=== PATIENT | male | born 1940 | race African-American/Black ===

== ENCOUNTER 2021-09-25 08:17 | Inpatient (IN) ==
[2021-09-25 10:45] LABS: Basophils % 0.2 % (0.0-0.8); Eosinophils # 0.1 10*3/uL (0.0-0.87); Eosinophils % 0.7 % (0.00-10.9); Hematocrit 45.3 VOL% (42.0-52.0); Hemoglobin 14.9 GM/DL (14.0-18.0); Immature Granulocytes % 0.2 %; Immature Granulocytes Absolute 0.02 #; Lymphocytes # 2.7 10*3/uL (1.4-4.0); Lymphocytes % 30.2 % (21.2-54.2); Mean Corpuscular HGB Conc 32.9 GM/DL (32-36); Mean Corpuscular Volume 91.3 FL (87-102); Mean Platelet Volume 11.4 FL (9.6-12.0); Monocytes % 13.8 % (1.7-12.7); Neutrophils % 54.9 % (38.7-73.9); Platelet Count 191 T/CUMM (130-400); Red Blood Count 4.96 MC/CUMM (3.8-5.5); Red Cell Distribution Width 13.3 % (9.3-17.3)
[2021-09-25 11:09] LABS: Albumin 3.2 G/DL (3.4-5.0); Bilirubin,Total 0.8 MG/DL (0.20-1.00); Calcium 11.1 MG/DL (8.5-10.1); Osmolality,Calculated 284.1 MOS/KG (273-304); Potassium 3.6 MMOL/L (3.5-5.1); Total Protein 7.5 G/DL (6.4-8.2)
[2021-09-25] MEDS ORDERED: ONDANSETRON 4 MG/2 ML VIAL IV PRN (13:46)
[2021-09-25] MEDS ORDERED: LACTATED RINGERS 1,000 ML IV SCH (13:46)
[2021-09-25] MEDS ORDERED: HYDROmorphone 2 MG/1 ML VIAL IV PRN (13:46)
[2021-09-25] MEDS ORDERED: CLOTRIMAZOLE 1% CREAM 15 GM TUBE TOP PRN (13:46)
[2021-09-25] MEDS ORDERED: PROMETHAZINE 25 MG/1 ML VIAL IM PRN (13:46)
[2021-09-25] MEDS ORDERED: ACETAMINOPHEN 325 MG TABLET PO PRN (13:46)
[2021-09-25] MEDS: METOPROLOL TARTRATE 25 MG TABLET PO SCH ×2 (14:47→21:09)
[2021-09-25] MEDS: ALBUTEROL/IPRATROPIUM 3 ML NEB RESP TX SCH ×2 (15:25→20:00)
[2021-09-25] MEDS ORDERED: LACTATED RINGERS 1,000 ML IV ONE (18:15)
[2021-09-25] MEDS: LACTATED RINGERS 1,000 ML IV SCH (19:15)
[2021-09-25] MEDS: risperiDONE 1 MG TABLET PO SCH (21:09)
[2021-09-25] MEDS: ROSUVASTATIN 20 MG TABLET PO SCH (21:09)
[2021-09-25] MEDS: MICONAZOLE 2% CREAM 57 GM TUBE TOP SCH (21:10)
[2021-09-26] MEDS: ALBUTEROL/IPRATROPIUM 3 ML NEB RESP TX SCH ×4 (00:46→19:07)
[2021-09-26] MEDS: LACTATED RINGERS 1,000 ML IV SCH (02:21)
[2021-09-26 06:03] LABS: Basophils % 0.4 % (0.0-0.8); Eosinophils # 0.2 10*3/uL (0.0-0.87); Eosinophils % 2.3 % (0.00-10.9); Hematocrit 42.6 VOL% (42.0-52.0); Hemoglobin 14.1 GM/DL (14.0-18.0); Immature Granulocytes % 0.3 %; Immature Granulocytes Absolute 0.02 #; Lymphocytes # 2.6 10*3/uL (1.4-4.0); Lymphocytes % 38.2 % (21.2-54.2); Mean Corpuscular HGB Conc 33.1 GM/DL (32-36); Mean Corpuscular Volume 92.2 FL (87-102); Mean Platelet Volume 11.7 FL (9.6-12.0); Monocytes % 16.7 % (1.7-12.7); Neutrophils % 42.1 % (38.7-73.9); Platelet Count 166 T/CUMM (130-400); Red Blood Count 4.62 MC/CUMM (3.8-5.5); Red Cell Distribution Width 13.3 % (9.3-17.3); White Blood Count 6.9 T/CUMM (4-12)
[2021-09-26 06:23] LABS: Calcium 10.9 MG/DL (8.5-10.1); Osmolality,Calculated 286.8 MOS/KG (273-304); Potassium 3.3 MMOL/L (3.5-5.1)
[2021-09-26 06:24] LABS: Anisocytosis Slight; Band Neutrophils 2 % (0-10); Eosinophils 2 % (0-10); Lymphocytes 34 % (20-55); Macrocytosis Slight; Nucleated Red Blood Cells 1 (0-5); Platelet Estimate Normal; Segmented Neutrophils 45 % (50-85); Total Cells Counted 100
[2021-09-26] MEDS ORDERED: PANTOPRAZOLE 40 MG TABLET PO SCH (09:00)
[2021-09-26] MEDS: CYANOCOBALAMIN 500 MCG TABLET PO SCH (09:04)
[2021-09-26] MEDS: PANTOPRAZOLE 40 MG TABLET PO SCH (09:04)
[2021-09-26] MEDS: METOPROLOL TARTRATE 25 MG TABLET PO SCH ×2 (09:04→22:18)
[2021-09-26] MEDS: MONTELUKAST 10 MG TABLET PO SCH (09:04)
[2021-09-26] MEDS: ENOXAPARIN 40 MG/0.4 ML SYRINGE SUBCUT SCH (09:05)
[2021-09-26] MEDS: DEXT 5% NACL 0.45% KCL 20 MEQ 20 MEQ/1,000 ML BAG IV SCH ×2 (09:52→16:45)
[2021-09-26] MEDS: MICONAZOLE 2% CREAM 57 GM TUBE TOP SCH ×2 (10:44→21:56)
[2021-09-26] MEDS: risperiDONE 1 MG TABLET PO SCH (21:53)
[2021-09-26] MEDS: ROSUVASTATIN 20 MG TABLET PO SCH (21:53)
[2021-09-27] MEDS: DEXT 5% NACL 0.45% KCL 20 MEQ 20 MEQ/1,000 ML BAG IV SCH ×7 (00:09→23:02)
[2021-09-27] MEDS: ALBUTEROL/IPRATROPIUM 3 ML NEB RESP TX SCH ×4 (00:44→19:13)
[2021-09-27 05:35] LABS: Basophils % 0.4 % (0.0-0.8); Eosinophils # 0.3 10*3/uL (0.0-0.87); Eosinophils % 3.4 % (0.00-10.9); Hematocrit 41.2 VOL% (42.0-52.0); Hemoglobin 13.4 GM/DL (14.0-18.0); Immature Granulocytes % 0.4 %; Immature Granulocytes Absolute 0.03 #; Lymphocytes # 2.4 10*3/uL (1.4-4.0); Lymphocytes % 33.5 % (21.2-54.2); Mean Corpuscular HGB Conc 32.5 GM/DL (32-36); Mean Corpuscular Volume 92.8 FL (87-102); Mean Platelet Volume 11.6 FL (9.6-12.0); Monocytes % 13.5 % (1.7-12.7); Neutrophils % 48.8 % (38.7-73.9); Platelet Count 149 T/CUMM (130-400); Red Blood Count 4.44 MC/CUMM (3.8-5.5); White Blood Count 7.3 T/CUMM (4-12)
[2021-09-27 05:42] LABS: Calcium 10.1 MG/DL (8.5-10.1); Osmolality,Calculated 281.3 MOS/KG (273-304); Potassium 3.3 MMOL/L (3.5-5.1)
[2021-09-27] MEDS: ENOXAPARIN 40 MG/0.4 ML SYRINGE SUBCUT SCH (09:01)
[2021-09-27] MEDS: MICONAZOLE 2% CREAM 57 GM TUBE TOP SCH ×2 (11:50→21:42)
[2021-09-27] MEDS: METOPROLOL TARTRATE 25 MG TABLET PO SCH ×2 (12:18→21:39)
[2021-09-27] MEDS: PANTOPRAZOLE 40 MG TABLET PO SCH (12:19)
[2021-09-27] MEDS: MONTELUKAST 10 MG TABLET PO SCH (12:19)
[2021-09-27] MEDS: CYANOCOBALAMIN 500 MCG TABLET PO SCH (12:19)
[2021-09-27] MEDS: risperiDONE 1 MG TABLET PO SCH (21:39)
[2021-09-27] MEDS: ROSUVASTATIN 20 MG TABLET PO SCH (21:39)
[2021-09-28] MEDS: ALBUTEROL/IPRATROPIUM 3 ML NEB RESP TX SCH ×4 (01:21→20:05)
[2021-09-28 05:19] LABS: Basophils % 0.4 % (0.0-0.8); Eosinophils # 0.2 10*3/uL (0.0-0.87); Eosinophils % 2.8 % (0.00-10.9); Hematocrit 43.7 VOL% (42.0-52.0); Hemoglobin 14.4 GM/DL (14.0-18.0); Immature Granulocytes % 0.3 %; Immature Granulocytes Absolute 0.02 #; Lymphocytes # 2.4 10*3/uL (1.4-4.0); Lymphocytes % 30.2 % (21.2-54.2); Mean Corpuscular Volume 92.4 FL (87-102); Monocytes % 11.4 % (1.7-12.7); Neutrophils % 54.9 % (38.7-73.9); Platelet Count 170 T/CUMM (130-400); Red Blood Count 4.73 MC/CUMM (3.8-5.5); Red Cell Distribution Width 12.8 % (9.3-17.3); White Blood Count 7.9 T/CUMM (4-12)
[2021-09-28] MEDS: DEXT 5% NACL 0.45% KCL 20 MEQ 20 MEQ/1,000 ML BAG IV SCH ×3 (05:40→21:23)
[2021-09-28 06:12] LABS: Calcium 10.6 MG/DL (8.5-10.1); Osmolality,Calculated 278.4 MOS/KG (273-304); Potassium 3.6 MMOL/L (3.5-5.1)
[2021-09-28] MEDS: METOPROLOL TARTRATE 25 MG TABLET PO SCH ×2 (08:09→21:20)
[2021-09-28] MEDS: PANTOPRAZOLE 40 MG TABLET PO SCH (08:09)
[2021-09-28] MEDS ORDERED: fentaNYL 100 MCG/2 ML VIAL ONE ×2 (08:38→11:15)
[2021-09-28] MEDS ORDERED: LIDOCAINE 2% 5 ML VIAL ONE (08:40)
[2021-09-28] MEDS ORDERED: propofoL 200 MG/20 ML VIAL IV ONE (08:40)
[2021-09-28] MEDS ORDERED: SEVOFLURANE 1 UNIT/15 MINUTE INH ONE ×7 (08:40→11:35)
[2021-09-28] MEDS ORDERED: ROCURONIUM 50 MG/5 ML VIAL IV ONE ×2 (08:40→10:22)
[2021-09-28] MEDS ORDERED: ETOMIDATE 40 MG/20 ML VIAL IV ONE (08:40)
[2021-09-28] MEDS ORDERED: SUCCINYLCHOLINE 200 MG/10 ML VIAL ONE (08:40)
[2021-09-28] MEDS: MONTELUKAST 10 MG TABLET PO SCH (09:08)
[2021-09-28] MEDS: CYANOCOBALAMIN 500 MCG TABLET PO SCH (09:08)
[2021-09-28] MEDS: ENOXAPARIN 40 MG/0.4 ML SYRINGE SUBCUT SCH (09:08)
[2021-09-28] MEDS ORDERED: PHENYLEPHRINE 10 MG/1 ML VIAL IV ONE ×2 (09:19→10:31)
[2021-09-28] MEDS ORDERED: ALBUMIN 5% 12.5 GM/250 ML VIAL IV ONE (09:28)
[2021-09-28] MEDS ORDERED: METOPROLOL TARTRATE 5 MG/5 ML VIAL IV ONE (09:53)
[2021-09-28] MEDS ORDERED: SODIUM CHLORIDE 0.9% 100 ML IV ONE ×2 (09:53→10:31)
[2021-09-28] MEDS ORDERED: SUGAMMADEX 200 MG/2 ML VIAL IV ONE (10:55)
[2021-09-28] MEDS ORDERED: LACTATED RINGERS 1,000 ML IV ONE ×2 (11:18→17:11)
[2021-09-28 11:38] LABS: Amorphous Crystals,Urine Few /HPF (Few); Bacteria,Urine Occasional /HPF (Few); Bilirubin,Urine Negative (Negative); Blood, Urine Moderate mg/dL (Negative); Glucose,Urine (UA) 50 mg/dL (Negative); Hyaline Casts,Urine 1 /LPF (0-3); Ketones,Urine Negative (Negative); Mucus,Urine Many /LPF (Occasional); Nitrite,Urine Negative (Negative); Protein,Urine 100 MG/DL; RBC,Urine 13 /HPF (0-4); Squamous Epithelial Cell,Urine Occasional /HPF (0-10); Urine Appearance Slightly Hazy (Clear); Urine Color Amber (Yellow); Urine Urobilinogen < 2.0 EU/DL (<2.0)
[2021-09-28 13:12] LABS: Basophils % 0.4 % (0.0-0.8); Eosinophils % 0.8 % (0.00-10.9); Hemoglobin 14.3 GM/DL (14.0-18.0); Immature Granulocytes % 0.2 %; Immature Granulocytes Absolute 0.01 #; Lymphocytes # 1.7 10*3/uL (1.4-4.0); Lymphocytes % 33.9 % (21.2-54.2); Mean Corpuscular HGB Conc 32.5 GM/DL (32-36); Mean Corpuscular Volume 93.6 FL (87-102); Mean Platelet Volume 11.2 FL (9.6-12.0); Monocytes % 11.1 % (1.7-12.7); Neutrophils % 53.6 % (38.7-73.9); Platelet Count 177 T/CUMM (130-400); Red Cell Distribution Width 12.9 % (9.3-17.3)
[2021-09-28 13:28] LABS: Calcium 9.9 MG/DL (8.5-10.1); Osmolality,Calculated 276.7 MOS/KG (273-304)
[2021-09-28 14:26] LABS: Eosinophils 1 % (0-10); Lymphocytes 38 % (20-55); Segmented Neutrophils 52 % (50-85); Total Cells Counted 100
[2021-09-28 14:27] LABS: Platelet Estimate Adequate
[2021-09-28] MEDS ORDERED: HYDROmorphone 2 MG/1 ML VIAL IV ONE (17:18)
[2021-09-28] MEDS: MICONAZOLE 2% CREAM 57 GM TUBE TOP SCH ×2 (18:38→21:22)
[2021-09-28] MEDS: LACTATED RINGERS 1,000 ML IV SCH (18:39)
[2021-09-28] MEDS: risperiDONE 1 MG TABLET PO SCH (21:19)
[2021-09-28] MEDS: ROSUVASTATIN 20 MG TABLET PO SCH (21:20)
[2021-09-29] MEDS: ALBUTEROL/IPRATROPIUM 3 ML NEB RESP TX SCH ×4 (01:26→18:52)
[2021-09-29] MEDS: DEXT 5% NACL 0.45% KCL 20 MEQ 20 MEQ/1,000 ML BAG IV SCH ×4 (04:21→21:30)
[2021-09-29 07:10] LABS: Calcium 8.9 MG/DL (8.5-10.1); Osmolality,Calculated 275.8 MOS/KG (273-304); Potassium 5.1 MMOL/L (3.5-5.1)
[2021-09-29] MEDS ORDERED: LACTATED RINGERS 1,000 ML IV ONE (07:49)
[2021-09-29] MEDS ORDERED: DEXTROSE 10% 250 ML BAG IV PRN (08:49)
[2021-09-29] MEDS ORDERED: GLUCAGON 1 MG VIAL IM PRN (08:49)
[2021-09-29] MEDS: CYANOCOBALAMIN 500 MCG TABLET PO SCH (09:04)
[2021-09-29] MEDS: METOPROLOL TARTRATE 25 MG TABLET PO SCH ×2 (09:04→21:32)
[2021-09-29] MEDS: MICONAZOLE 2% CREAM 57 GM TUBE TOP SCH ×2 (09:04→21:32)
[2021-09-29] MEDS: ENOXAPARIN 40 MG/0.4 ML SYRINGE SUBCUT SCH (09:04)
[2021-09-29] MEDS: PANTOPRAZOLE 40 MG TABLET PO SCH (09:04)
[2021-09-29] MEDS: MONTELUKAST 10 MG TABLET PO SCH (09:04)
[2021-09-29 09:59] LABS: Basophils % 0.2 % (0.0-0.8); Eosinophils # 0.1 10*3/uL (0.0-0.87); Eosinophils % 0.4 % (0.00-10.9); Hematocrit 42.1 VOL% (42.0-52.0); Hemoglobin 13.5 GM/DL (14.0-18.0); Immature Granulocytes % 0.5 %; Immature Granulocytes Absolute 0.06 #; Lymphocytes # 2.2 10*3/uL (1.4-4.0); Lymphocytes % 19.4 % (21.2-54.2); Mean Corpuscular HGB Conc 32.1 GM/DL (32-36); Mean Corpuscular Volume 93.8 FL (87-102); Mean Platelet Volume 12.3 FL (9.6-12.0); Monocytes % 12.9 % (1.7-12.7); Neutrophils % 66.6 % (38.7-73.9); Red Blood Count 4.49 MC/CUMM (3.8-5.5); Red Cell Distribution Width 13.4 % (9.3-17.3)
[2021-09-29 10:00] LABS: Platelet Count 120 T/CUMM (130-400); White Blood Count 11.4 T/CUMM (4-12)
[2021-09-29 10:42] LABS: Band Neutrophils 1 % (0-10); Hypochromia Slight; Lymphocytes 23 % (20-55); Microcytosis 1+; Segmented Neutrophils 61 % (50-85); Total Cells Counted 100
[2021-09-29 10:43] LABS: Ovalocytes Slight; Platelet Estimate Adequate
[2021-09-29] MEDS: INSULIN REGULAR 100 UNIT/ML SUBCUT SCH ×2 (12:37→18:31)
[2021-09-29] MEDS: FAT EMULSION 20% 250 ML IV SCH (15:55)
[2021-09-29] MEDS ORDERED: DEXTROSE 10% 1,000 ML IV PRN (17:00)
[2021-09-29] MEDS ORDERED: ZINC/COPPER/MANGANESE/SELENIUM 1 ML, MULTIVITAMIN INJ 10 ML in AMINO ACIDS/DEXT/LYTES 5... IV SCH (17:00)
[2021-09-29] MEDS: ROSUVASTATIN 20 MG TABLET PO SCH (21:31)
[2021-09-29] MEDS: risperiDONE 1 MG TABLET PO SCH (21:32)
[2021-09-30] MEDS: INSULIN REGULAR 100 UNIT/ML SUBCUT SCH ×4 (00:35→18:35)
[2021-09-30] MEDS: ALBUTEROL/IPRATROPIUM 3 ML NEB RESP TX SCH ×3 (01:00→12:50)
[2021-09-30] MEDS: DEXT 5% NACL 0.45% KCL 20 MEQ 20 MEQ/1,000 ML BAG IV SCH ×2 (02:21→07:13)
[2021-09-30 05:44] LABS: Basophils % 0.1 % (0.0-0.8); Eosinophils # 0.2 10*3/uL (0.0-0.87); Eosinophils % 1.9 % (0.00-10.9); Hematocrit 37.2 VOL% (42.0-52.0); Hemoglobin 12.2 GM/DL (14.0-18.0); Immature Granulocytes % 0.4 %; Immature Granulocytes Absolute 0.04 #; Lymphocytes # 1.6 10*3/uL (1.4-4.0); Lymphocytes % 17.5 % (21.2-54.2); Mean Corpuscular HGB Conc 32.8 GM/DL (32-36); Mean Corpuscular Volume 93.2 FL (87-102); Mean Platelet Volume 10.8 FL (9.6-12.0); Neutrophils % 67.1 % (38.7-73.9); Platelet Count 122 T/CUMM (130-400); Red Blood Count 3.99 MC/CUMM (3.8-5.5); Red Cell Distribution Width 13.3 % (9.3-17.3); White Blood Count 9.3 T/CUMM (4-12)
[2021-09-30 05:56] LABS: Calcium 8.9 MG/DL (8.5-10.1); Potassium 4.4 MMOL/L (3.5-5.1)
[2021-09-30 06:06] LABS: Band Neutrophils 12 % (0-10); Lymphocytes 15 % (20-55); Metamyelocytes 1 %; Segmented Neutrophils 65 % (50-85); Total Cells Counted 100
[2021-09-30 06:07] LABS: Platelet Estimate Normal
[2021-09-30] MEDS: SODIUM CHLORIDE 0.9% 1,000 ML IV SCH ×2 (08:39→22:51)
[2021-09-30] MEDS: MICONAZOLE 2% CREAM 57 GM TUBE TOP SCH ×2 (10:14→22:52)
[2021-09-30] MEDS: ENOXAPARIN 40 MG/0.4 ML SYRINGE SUBCUT SCH (10:15)
[2021-09-30] MEDS: METOPROLOL TARTRATE 25 MG TABLET PO SCH ×2 (10:15→22:52)
[2021-09-30] MEDS: PANTOPRAZOLE 40 MG TABLET PO SCH (10:15)
[2021-09-30] MEDS: MONTELUKAST 10 MG TABLET PO SCH (10:15)
[2021-09-30] MEDS: CYANOCOBALAMIN 500 MCG TABLET PO SCH (10:15)
[2021-09-30] MEDS ORDERED: MAGNESIUM SULF RIDER 4 GM/100 ML PREMIX IV PRN (13:38)
[2021-09-30] MEDS ORDERED: MAGNESIUM SULF RIDER 2 GM/50 ML PREMIX IV PRN (13:38)
[2021-09-30] MEDS ORDERED: SODIUM PHOSPHATE INJ 30 MMOL in SODIUM CHLORIDE 0.9% 250 ML IV ONE (14:00)
[2021-09-30] MEDS: ZINC/COPPER/MANGANESE/SELENIUM 1 ML, MULTIVITAMIN INJ 10 ML in AMINO ACIDS/DEXT/LYTES 5... IV SCH (17:42)
[2021-09-30] MEDS: risperiDONE 1 MG TABLET PO SCH (22:51)
[2021-09-30] MEDS: ROSUVASTATIN 20 MG TABLET PO SCH (22:51)
[2021-10-01] MEDS: INSULIN REGULAR 100 UNIT/ML SUBCUT SCH ×4 (01:21→17:14)
[2021-10-01 06:36] LABS: Basophils % 0.3 % (0.0-0.8); Eosinophils # 0.2 10*3/uL (0.0-0.87); Eosinophils % 2.8 % (0.00-10.9); Hematocrit 38.9 VOL% (42.0-52.0); Hemoglobin 12.8 GM/DL (14.0-18.0); Immature Granulocytes % 0.4 %; Immature Granulocytes Absolute 0.03 #; Lymphocytes # 1.5 10*3/uL (1.4-4.0); Lymphocytes % 20.6 % (21.2-54.2); Mean Corpuscular HGB Conc 32.9 GM/DL (32-36); Mean Corpuscular Volume 92.4 FL (87-102); Mean Platelet Volume 11.1 FL (9.6-12.0); Monocytes % 13.7 % (1.7-12.7); Neutrophils % 62.2 % (38.7-73.9); Platelet Count 125 T/CUMM (130-400); Red Blood Count 4.21 MC/CUMM (3.8-5.5); Red Cell Distribution Width 13.2 % (9.3-17.3); White Blood Count 7.4 T/CUMM (4-12)
[2021-10-01 06:42] LABS: Calcium 10.2 MG/DL (8.5-10.1); Osmolality,Calculated 282.3 MOS/KG (273-304); Potassium 3.6 MMOL/L (3.5-5.1)
[2021-10-01 07:06] LABS: Band Neutrophils 1 % (0-10); Eosinophils 6 % (0-10); Lymphocytes 24 % (20-55); Platelet Estimate Adequate; Segmented Neutrophils 55 % (50-85); Total Cells Counted 100
[2021-10-01 07:07] LABS: Anisocytosis 1+; Burr Cells Few; Macrocytosis Slight
[2021-10-01] MEDS: ALBUTEROL/IPRATROPIUM 3 ML NEB RESP TX SCH ×4 (07:59→19:33)
[2021-10-01] MEDS: METOPROLOL TARTRATE 25 MG TABLET PO SCH ×2 (10:08→21:40)
[2021-10-01] MEDS: PANTOPRAZOLE 40 MG TABLET PO SCH (10:08)
[2021-10-01] MEDS: CYANOCOBALAMIN 500 MCG TABLET PO SCH (10:08)
[2021-10-01] MEDS: ENOXAPARIN 40 MG/0.4 ML SYRINGE SUBCUT SCH (10:09)
[2021-10-01] MEDS: MONTELUKAST 10 MG TABLET PO SCH (10:09)
[2021-10-01] MEDS: MICONAZOLE 2% CREAM 57 GM TUBE TOP SCH ×2 (11:47→21:41)
[2021-10-01] MEDS: SODIUM CHLORIDE 0.9% 1,000 ML IV SCH (12:49)
[2021-10-01] MEDS: ZINC/COPPER/MANGANESE/SELENIUM 1 ML, MULTIVITAMIN INJ 10 ML in AMINO ACIDS/DEXT/LYTES 5... IV SCH (17:13)
[2021-10-01] MEDS: ROSUVASTATIN 20 MG TABLET PO SCH (21:39)
[2021-10-01] MEDS: risperiDONE 1 MG TABLET PO SCH (21:40)
[2021-10-02] MEDS: INSULIN REGULAR 100 UNIT/ML SUBCUT SCH ×4 (01:30→17:22)
[2021-10-02] MEDS: SODIUM CHLORIDE 0.9% 1,000 ML IV SCH ×2 (01:34→18:35)
[2021-10-02] MEDS: ALBUTEROL/IPRATROPIUM 3 ML NEB RESP TX SCH ×4 (02:00→20:33)
[2021-10-02] MEDS: MICONAZOLE 2% CREAM 57 GM TUBE TOP SCH ×2 (09:40→21:44)
[2021-10-02] MEDS: METOPROLOL TARTRATE 25 MG TABLET PO SCH ×2 (09:41→21:44)
[2021-10-02] MEDS: ENOXAPARIN 40 MG/0.4 ML SYRINGE SUBCUT SCH (09:41)
[2021-10-02] MEDS: MONTELUKAST 10 MG TABLET PO SCH (09:41)
[2021-10-02] MEDS: CYANOCOBALAMIN 500 MCG TABLET PO SCH (09:41)
[2021-10-02] MEDS: PANTOPRAZOLE 40 MG TABLET PO SCH (09:41)
[2021-10-02] MEDS: ZINC/COPPER/MANGANESE/SELENIUM 1 ML, MULTIVITAMIN INJ 10 ML in AMINO ACIDS/DEXT/LYTES 5... IV SCH (17:22)
[2021-10-02] MEDS: risperiDONE 1 MG TABLET PO SCH (21:43)
[2021-10-02] MEDS: ROSUVASTATIN 20 MG TABLET PO SCH (21:44)
[2021-10-03] MEDS: INSULIN REGULAR 100 UNIT/ML SUBCUT SCH ×4 (00:45→18:29)
[2021-10-03] MEDS: ALBUTEROL/IPRATROPIUM 3 ML NEB RESP TX SCH ×4 (01:40→19:50)
[2021-10-03] MEDS: SODIUM CHLORIDE 0.9% 1,000 ML IV SCH ×3 (05:48→21:32)
[2021-10-03 06:14] LABS: Basophils % 0.4 % (0.0-0.8); Eosinophils # 0.2 10*3/uL (0.0-0.87); Eosinophils % 2.9 % (0.00-10.9); Hematocrit 36.9 VOL% (42.0-52.0); Hemoglobin 12.1 GM/DL (14.0-18.0); Immature Granulocytes % 0.3 %; Immature Granulocytes Absolute 0.02 #; Lymphocytes # 1.6 10*3/uL (1.4-4.0); Lymphocytes % 22.8 % (21.2-54.2); Mean Corpuscular HGB Conc 32.8 GM/DL (32-36); Mean Corpuscular Volume 91.8 FL (87-102); Mean Platelet Volume 10.6 FL (9.6-12.0); Monocytes % 14.3 % (1.7-12.7); Neutrophils % 59.3 % (38.7-73.9); Platelet Count 146 T/CUMM (130-400); Red Blood Count 4.02 MC/CUMM (3.8-5.5); Red Cell Distribution Width 13.2 % (9.3-17.3); White Blood Count 7.2 T/CUMM (4-12)
[2021-10-03 06:34] LABS: Eosinophils 4 % (0-10); Hypochromia Slight; Lymphocytes 27 % (20-55); Ovalocytes Few; Segmented Neutrophils 56 % (50-85); Total Cells Counted 100
[2021-10-03 06:35] LABS: Microcytosis 1+; Platelet Estimate Adequate
[2021-10-03 06:37] LABS: Calcium 10.4 MG/DL (8.5-10.1); Osmolality,Calculated 283.4 MOS/KG (273-304); Potassium 3.6 MMOL/L (3.5-5.1)
[2021-10-03] MEDS ORDERED: DEXTROSE 10% 250 ML BAG IV PRN (07:30)
[2021-10-03] MEDS: METOPROLOL TARTRATE 25 MG TABLET PO SCH ×2 (10:15→21:24)
[2021-10-03] MEDS: ENOXAPARIN 40 MG/0.4 ML SYRINGE SUBCUT SCH (10:15)
[2021-10-03] MEDS: MICONAZOLE 2% CREAM 57 GM TUBE TOP SCH ×2 (10:15→21:24)
[2021-10-03] MEDS: PANTOPRAZOLE 40 MG TABLET PO SCH (10:16)
[2021-10-03] MEDS: MONTELUKAST 10 MG TABLET PO SCH (10:16)
[2021-10-03] MEDS: CYANOCOBALAMIN 500 MCG TABLET PO SCH (10:16)
[2021-10-03] MEDS ORDERED: POTASSIUM PHOSPHATE 30 MMOL in SODIUM CHLORIDE 0.9% 250 ML IV ONE (14:30)
[2021-10-03] MEDS: ZINC/COPPER/MANGANESE/SELENIUM 1 ML, MULTIVITAMIN INJ 10 ML in AMINO ACIDS/DEXT/LYTES 5... IV SCH (18:28)
[2021-10-03] MEDS: risperiDONE 1 MG TABLET PO SCH (21:24)
[2021-10-03] MEDS: ROSUVASTATIN 20 MG TABLET PO SCH (21:24)
[2021-10-04] MEDS: INSULIN REGULAR 100 UNIT/ML SUBCUT SCH ×4 (00:52→18:49)
[2021-10-04] MEDS: ALBUTEROL/IPRATROPIUM 3 ML NEB RESP TX SCH ×4 (01:09→20:15)
[2021-10-04 06:03] LABS: Basophils % 0.2 % (0.0-0.8); Eosinophils # 0.2 10*3/uL (0.0-0.87); Eosinophils % 2.4 % (0.00-10.9); Hemoglobin 11.8 GM/DL (14.0-18.0); Immature Granulocytes % 0.6 %; Immature Granulocytes Absolute 0.06 #; Lymphocytes # 2.1 10*3/uL (1.4-4.0); Lymphocytes % 22.6 % (21.2-54.2); Mean Corpuscular HGB Conc 32.8 GM/DL (32-36); Mean Corpuscular Volume 92.8 FL (87-102); Mean Platelet Volume 10.8 FL (9.6-12.0); Monocytes % 10.3 % (1.7-12.7); Neutrophils % 63.9 % (38.7-73.9); Platelet Count 181 T/CUMM (130-400); Red Blood Count 3.88 MC/CUMM (3.8-5.5); Red Cell Distribution Width 13.5 % (9.3-17.3); White Blood Count 9.3 T/CUMM (4-12)
[2021-10-04 06:26] LABS: Calcium 10.1 MG/DL (8.5-10.1); Osmolality,Calculated 290.8 MOS/KG (273-304); Potassium 3.7 MMOL/L (3.5-5.1)
[2021-10-04] MEDS: METOPROLOL TARTRATE 25 MG TABLET PO SCH ×2 (10:20→21:52)
[2021-10-04] MEDS: PANTOPRAZOLE 40 MG TABLET PO SCH (10:20)
[2021-10-04] MEDS: ENOXAPARIN 40 MG/0.4 ML SYRINGE SUBCUT SCH (10:20)
[2021-10-04] MEDS: CYANOCOBALAMIN 500 MCG TABLET PO SCH (10:20)
[2021-10-04] MEDS: MONTELUKAST 10 MG TABLET PO SCH (10:20)
[2021-10-04] MEDS: MICONAZOLE 2% CREAM 57 GM TUBE TOP SCH ×2 (10:20→21:51)
[2021-10-04] MEDS ORDERED: MAGNESIUM SULF RIDER 2 GM/50 ML PREMIX IV ONE (11:00)
[2021-10-04] MEDS: SODIUM CHLORIDE 0.9% 1,000 ML IV SCH (11:12)
[2021-10-04] MEDS ORDERED: POTASSIUM PHOSPHATE 15 MMOL in SODIUM CHLORIDE 0.9% 100 ML IV ONE (12:00)
[2021-10-04] MEDS: ZINC/COPPER/MANGANESE/SELENIUM 1 ML, MULTIVITAMIN INJ 10 ML in AMINO ACIDS/DEXT/LYTES 5... IV SCH (18:00)
[2021-10-04] MEDS: risperiDONE 1 MG TABLET PO SCH (21:52)
[2021-10-04] MEDS: ROSUVASTATIN 20 MG TABLET PO SCH (21:52)
[2021-10-05] MEDS: ALBUTEROL/IPRATROPIUM 3 ML NEB RESP TX SCH ×4 (00:47→19:20)
[2021-10-05] MEDS: INSULIN REGULAR 100 UNIT/ML SUBCUT SCH ×4 (01:34→17:16)
[2021-10-05] MEDS: SODIUM CHLORIDE 0.9% 1,000 ML IV SCH ×2 (04:20→17:05)
[2021-10-05 07:48] LABS: Basophils % 0.4 % (0.0-0.8); Eosinophils # 0.4 10*3/uL (0.0-0.87); Eosinophils % 4.3 % (0.00-10.9); Hematocrit 36.1 VOL% (42.0-52.0); Hemoglobin 11.6 GM/DL (14.0-18.0); Immature Granulocytes % 0.6 %; Immature Granulocytes Absolute 0.05 #; Lymphocytes # 2.3 10*3/uL (1.4-4.0); Lymphocytes % 25.8 % (21.2-54.2); Mean Corpuscular HGB Conc 32.1 GM/DL (32-36); Mean Platelet Volume 10.9 FL (9.6-12.0); Monocytes % 11.9 % (1.7-12.7); Platelet Count 230 T/CUMM (130-400); Red Cell Distribution Width 13.7 % (9.3-17.3)
[2021-10-05 08:08] LABS: Calcium 9.9 MG/DL (8.5-10.1); Osmolality,Calculated 296.6 MOS/KG (273-304); Potassium 3.5 MMOL/L (3.5-5.1)
[2021-10-05 08:17] LABS: Eosinophils 5 % (0-10); Hypochromia 1+; Lymphocytes 24 % (20-55); Microcytosis 1+; Platelet Estimate Adequate; Segmented Neutrophils 60 % (50-85); Total Cells Counted 100
[2021-10-05] MEDS: MICONAZOLE 2% CREAM 57 GM TUBE TOP SCH ×2 (09:09→20:27)
[2021-10-05] MEDS: ENOXAPARIN 40 MG/0.4 ML SYRINGE SUBCUT SCH (09:09)
[2021-10-05] MEDS: MONTELUKAST 10 MG TABLET PO SCH (09:10)
[2021-10-05] MEDS: METOPROLOL TARTRATE 25 MG TABLET PO SCH ×2 (09:11→20:26)
[2021-10-05] MEDS: PANTOPRAZOLE 40 MG TABLET PO SCH (09:11)
[2021-10-05] MEDS: CYANOCOBALAMIN 500 MCG TABLET PO SCH (09:11)
[2021-10-05] MEDS: CLINDAMYCIN INJ 900 MG/50 ML PREMIX IV SCH ×2 (10:27→17:34)
[2021-10-05] MEDS: ZINC/COPPER/MANGANESE/SELENIUM 1 ML, MULTIVITAMIN INJ 10 ML in AMINO ACIDS/DEXT/LYTES 5... IV SCH (17:05)
[2021-10-05] MEDS: ROSUVASTATIN 20 MG TABLET PO SCH (20:26)
[2021-10-05] MEDS: risperiDONE 1 MG TABLET PO SCH (20:26)
[2021-10-06] MEDS: ALBUTEROL/IPRATROPIUM 3 ML NEB RESP TX SCH ×4 (00:46→20:37)
[2021-10-06] MEDS: INSULIN REGULAR 100 UNIT/ML SUBCUT SCH ×4 (00:50→17:44)
[2021-10-06] MEDS: CLINDAMYCIN INJ 900 MG/50 ML PREMIX IV SCH ×3 (02:48→18:06)
[2021-10-06] MEDS: SODIUM CHLORIDE 0.9% 1,000 ML IV SCH (06:36)
[2021-10-06 08:17] LABS: Basophils % 0.4 % (0.0-0.8); Eosinophils # 0.3 10*3/uL (0.0-0.87); Hematocrit 33.7 VOL% (42.0-52.0); Hemoglobin 10.8 GM/DL (14.0-18.0); Immature Granulocytes % 0.5 %; Immature Granulocytes Absolute 0.04 #; Lymphocytes # 1.9 10*3/uL (1.4-4.0); Lymphocytes % 23.2 % (21.2-54.2); Mean Corpuscular Volume 94.1 FL (87-102); Mean Platelet Volume 10.8 FL (9.6-12.0); Monocytes % 11.5 % (1.7-12.7); Neutrophils % 60.4 % (38.7-73.9); Platelet Count 233 T/CUMM (130-400); Red Blood Count 3.58 MC/CUMM (3.8-5.5); Red Cell Distribution Width 13.5 % (9.3-17.3); White Blood Count 8.3 T/CUMM (4-12)
[2021-10-06 08:35] LABS: Calcium 9.6 MG/DL (8.5-10.1); Osmolality,Calculated 295.6 MOS/KG (273-304); Potassium 3.5 MMOL/L (3.5-5.1)
[2021-10-06] MEDS: PANTOPRAZOLE 40 MG TABLET PO SCH (09:54)
[2021-10-06] MEDS: MONTELUKAST 10 MG TABLET PO SCH (09:55)
[2021-10-06] MEDS: CYANOCOBALAMIN 500 MCG TABLET PO SCH (09:55)
[2021-10-06] MEDS: METOPROLOL TARTRATE 25 MG TABLET PO SCH ×2 (09:55→21:17)
[2021-10-06] MEDS: MICONAZOLE 2% CREAM 57 GM TUBE TOP SCH ×2 (09:56→21:13)
[2021-10-06] MEDS: ENOXAPARIN 40 MG/0.4 ML SYRINGE SUBCUT SCH (10:12)
[2021-10-06] MEDS ORDERED: SODIUM CHLORIDE 0.45% 1,000 ML IV SCH (10:30)
[2021-10-06] MEDS ORDERED: SODIUM CHLORIDE 0.9% IV ONE (11:30)
[2021-10-06] MEDS ORDERED: POTASSIUM PHOSPHATE IV ONE (11:30)
[2021-10-06] MEDS: FAT EMULSION 20% 250 ML IV SCH (14:28)
[2021-10-06] MEDS: ZINC/COPPER/MANGANESE/SELENIUM 1 ML, MULTIVITAMIN INJ 10 ML in AMINO ACIDS/DEXT/LYTES 5... IV SCH (17:41)
[2021-10-06] MEDS: risperiDONE 1 MG TABLET PO SCH (21:16)
[2021-10-06] MEDS: ROSUVASTATIN 20 MG TABLET PO SCH (21:16)
[2021-10-07] MEDS: INSULIN REGULAR 100 UNIT/ML SUBCUT SCH ×3 (00:54→12:10)
[2021-10-07] MEDS: ALBUTEROL/IPRATROPIUM 3 ML NEB RESP TX SCH ×3 (01:09→13:00)
[2021-10-07] MEDS: CLINDAMYCIN INJ 900 MG/50 ML PREMIX IV SCH ×2 (02:18→11:55)
[2021-10-07 05:51] LABS: Calcium 9.1 MG/DL (8.5-10.1); Osmolality,Calculated 289.3 MOS/KG (273-304); Potassium 3.6 MMOL/L (3.5-5.1)
[2021-10-07] MEDS: ENOXAPARIN 40 MG/0.4 ML SYRINGE SUBCUT SCH (11:55)
[2021-10-07] MEDS: METOPROLOL TARTRATE 25 MG TABLET PO SCH (11:55)
[2021-10-07] MEDS: CYANOCOBALAMIN 500 MCG TABLET PO SCH (11:56)
[2021-10-07] MEDS: MONTELUKAST 10 MG TABLET PO SCH (11:56)
[2021-10-07] MEDS: PANTOPRAZOLE 40 MG TABLET PO SCH (11:56)
[2021-10-07] MEDS: MICONAZOLE 2% CREAM 57 GM TUBE TOP SCH (11:56)
[2021-10-07 12:37] VITALS: BP 134/90
== END 2021-10-07 15:00 | DRG 336 ==
LOC: N.ED 08:17 → N.EDINP 09:54 → N.ICU 16:47 → N.3E 09-30 19:20
PROVIDERS: ADMIT Surgery; ATTEND Surgery